=== PATIENT | male | born 1970 | race Caucasian/White ===

== ENCOUNTER 2022-01-22 09:21 | Emergency (ER) | payer OTHER ==
[2022-01-22 10:44] VITALS: BP 115/83
[2022-01-22 11:04] VITALS: PULSE 77; O2SAT 98
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
== END 2022-01-22 11:32 | disposition left against medical advice (07) ==
LOC: ED 09:21
DX: M54.50 Low back pain, unspecified (principal); V86.55XA Driver of 3- or 4- wheeled all-terrain vehicle (ATV) injured in nontraffic accident, initial encounter; Z72.0 Tobacco use; Z79.891 Long term (current) use of opiate analgesic
CPT/HCPCS: 99281

== ENCOUNTER 2022-03-16 23:34 | Emergency (ER) | payer OTHER ==
--- NOTE | 2022-03-16 23:48 | ERPHSYRPT ---
- History of Present Illness Time Seen by Provider: 03/16/22 23:48 Source: patient Exam Limitations: no limitations Physician History: This is a 51-year-old white male who has had a urinary tract infection in the past and presents with similar symptoms. That is, left flank pain. He has no history of ureteral lithiasis. He does have a history of low back pain but it is more centrally located along his spine. He has not had any back injury. The pain he is experiencing now is different than his typical back pain. He has not noticed any dysuria or hematuria. Patient does not want an IV or any needle sticks. He will except obtaining a urinalysis. Timing/Duration: week(s) (1) Activites at Onset: none Quality: aching Onset Location: left flank Pain Radiation: none Severity of Pain-Max: moderate Severity of Pain-Current: mild (To moderate) Modifying Factors: Improves With: nothing Associated Symptoms: lower back pain (Left flank) Sexual intercourse history: non-contributory Allergies/Adverse Reactions: shellfish derived Allergy (Mild, Verified 03/16/22 23:48) Home Medications: Buprenorphine HCl/Naloxone HCl [Suboxone 2 mg-0.5 mg Sl Film] 1 each SL DAILY 01/22/22 [History] Hx Influenza Vaccination/Date Given: No Hx Pneumococcal Vaccination/Date Given: No Travel Risk - International Travel Have you traveled outside of the country in past 3 weeks: No - Coronavirus Screening Are you exhibiting any of the following symptoms?: No Close contact with a COVID-19 positive Pt in past 14-21 Days: No - Vaccine Status Have you recieved a Covid-19 vaccination: Yes 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[employer] - Past Medical History Pertinent Past Medical History: Yes Other Medical History: CHRONIC BACK PAIN - Past Surgical History Past Surgical History: Yes - Social History Smoking Status: Current every day smoker Exposure to second hand smoke: Yes Drug Use: marijuana Patient Lives Alone: No - Review of Systems Constitutional: No Symptoms Eyes: No Symptoms Ears, Nose, & Throat: No Symptoms Respiratory: No Symptoms Cardiac: No Symptoms Abdominal/Gastrointestinal: No Symptoms Genitourinary Symptoms: Flank Pain (Left) Musculoskeletal: No Symptoms Skin: No Symptoms Neurological: No Symptoms Psychological: No Symptoms Endocrine: No Symptoms Hematologic/Lymphatic: No Symptoms Immunological/Allergic: No Symptoms All Other Systems: Reviewed and Negative - Nursing Vital Signs Nursing Vital Signs: Initial Vital Signs Temperature 98.6 F 03/16/22 23:48 Pulse Rate 65 03/16/22 23:48 Respiratory Rate 18 03/16/22 23:48 Blood Pressure 104/61 03/16/22 23:48 O2 Sat by Pulse Oximetry 94 L 03/16/22 23:48 Pain Scale Pain Intensity 5 - Physical Exam General Appearance: no apparent distress, alert Eye Exam: PERRL/EOMI, eyes nml inspection Ears, Nose, Throat Exam: normal ENT inspection, moist mucous membranes Neck Exam: normal inspection, non-tender, supple, full range of motion Respiratory Exam: airway intact, No chest tenderness, No respiratory distress Gastrointestinal/Abdomen Exam: No tenderness Rectal Exam: not done Back Exam: normal inspection, normal range of motion, CVA tenderness (Left), No vertebral tenderness Extremity Exam: normal inspection, normal range of motion, pelvis stable Neurologic Exam: alert, oriented x 3, cooperative, nocturnist II-XII nml as tested, normal mood/affect, nml cerebellar function, nml station & gait, sensation nml Skin Exam: normal color, warm, dry Lymphatic Exam: No adenopathy SpO2 Interpretation: normal O2 Delivery: Room Air - Course Nursing assessment & vital signs reviewed: Yes Ordered Tests: Active Orders 24 hr Category Date Time Status UA W/RFX CULTURE Stat Lab 03/16/22 23:51 Results Lab/Rad Data: Laboratory Results 03/16/22 Range/Units 23:51 Urinalys Dipstick Clnc MAIN LAB Urine Color ORANGE A (YELLOW) Urine Appearance CLEAR (CLEAR) Urine pH 5.0 (5-6) Ur Specific [place] 1.010 (1.005-1.025) POC Urine Protein Conf 100 A (Negative) Urine Ketones SMALL-15 A (NEGATIVE) Urine Nitrite POSITIVE A (NEGATIVE) Urine Bilirubin SMALL A (NEGATIVE) Urine Urobilinogen 4 A (0-1) mg/dL Urine Leukocytes LARGE A (NEGATIVE) Urine WBC (Auto) Pending Urine RBC (Auto) Pending U Epithel Cells (Auto) Pending Urine Bacteria (Auto) Pending Urine RBC NEGATIVE (0-5) Tyler/ul Ur Culture Indicated? Pending Urine Glucose 250 A (NEGATIVE) mg/dL - Departure Departure Disposition: Home Clinical Impression: UTI (urinary tract infection) Condition: Stable Critical Care Time: No Referrals: DOCTOR,NO FAMILY [Primary Care Provider] - Follow up/PCP as directed Additional Instructions: Drink plenty of liquids. Take your antibiotics as prescribed. Follow-up with your primary care physician for persistent symptoms Prescriptions: Ciprofloxacin [Cipro 500 MG] 500 mg PO BID #14 tablet Phenazopyridine HCl 200 mg [Pyridium 200 mg] 200 mg PO TID #6 tablet
[2022-03-17 00:02] VITALS: BP 104/61
[2022-03-17 00:29] LABS: Appearance CLEAR (CLEAR); Bilirubin SMALL (NEGATIVE); Dipstick done @ ? MAIN LAB; Glucose 250 mg/dL (NEGATIVE); Ketones SMALL-15 (NEGATIVE); Nitrite POSITIVE (NEGATIVE); Protein,Urine Dip 100 (Negative); RBC NEGATIVE Ery/ul (0-5); Urobilinogen 4 mg/dL (0-1)
[2022-03-17] MEDS ORDERED: Levofloxacin 500 MG Tablet PO ONE (00:31)
[2022-03-17 00:39] LABS: Mucus SLIGHT /HPF (NEGATIVE); RBC 0-2 /HPF (0-2); WBC 0-2 /HPF (0-5)
[2022-03-17] MEDS ORDERED: Levofloxacin 500 MG Tablet ONE (00:39)
[2022-03-17 00:40] LABS: Bacteria NONE SEEN /HPF (NEGATIVE)
[2022-03-17 00:41] LABS: Urine Cultured Indicated? YES
[2022-03-17 00:44] VITALS: PULSE 72; O2SAT 100
== END 2022-03-17 00:45 | disposition home or self-care (01) ==
LOC: ED 23:34
DX: N39.0 Urinary tract infection, site not specified (principal); R10.9 Unspecified abdominal pain; Z79.891 Long term (current) use of opiate analgesic; Z72.0 Tobacco use
CPT/HCPCS: 81015; 87086; 99282; A9270-GY

== ENCOUNTER 2022-09-23 16:40 | Emergency (ER) | payer OTHER ==
[2022-09-23 16:52] VITALS: BP 111/77; PULSE 106; O2SAT 98
--- NOTE | 2022-09-23 17:03 | ERPHSYRPT ---
- History of Present Illness Time Seen by Provider: 09/23/22 17:02 Source: patient Exam Limitations: no limitations Patient Subjective Stated Complaint: Ziggy elbow pain Triage Nursing Assessment: Patient ambulated back to ED and transferred self to bed. Patient A+O X 3. Patient's skin pink, warm and dry. Patient compalins of ziggy elbow pain 7/10 for the past two weeks that has gotten worse. Patient's left elbow noted to be red, warm and swollen. Patient denies recent injury or trauma. Physician History: 52-year-old male presents emergency room with bilateral elbow pain for the past 2 weeks. 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 He denies having issues like this similar in the past. He denies any numbness or tingling down the hand different from his baseline. He is seeing an orthopedic surgeon for carpal tunnel that is to be released in the future. Occurred: other (worsening over past 2 weeks) Method of Injury: other (repetitive movements at work) Quality: constant, stabbing, throbbing Severity of Pain-Max: severe Severity of Pain-Current: severe Extremities Pain Location: elbow: bilateral (outside) Modifying Factors: Improves With: rest. Worsens With: movement Associated Symptoms: none Allergies/Adverse Reactions: shellfish derived Allergy (Mild, Verified 09/23/22 16:46) Home Medications: No Reportable Medications [No Reported Medications] 09/23/22 [History] Hx Tetanus, Diphtheria Vaccination/Date Given: No Hx Influenza Vaccination/Date Given: No Hx Pneumococcal Vaccination/Date Given: No Immunizations Up to Date: Yes Travel Risk - International Travel Have you traveled outside of the country in past 3 weeks: No - Coronavirus Screening Are you exhibiting any of the following symptoms?: No Close contact with a COVID-19 positive Pt in past 14-21 Days: No - Vaccine Status Have you recieved a Covid-19 vaccination: Yes 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: [employer] - Review of Systems Constitutional: No Symptoms Eyes: No Symptoms Ears, Nose, & Throat: No Symptoms Respiratory: No Symptoms Cardiac: No Symptoms Abdominal/Gastrointestinal: No Symptoms Genitourinary Symptoms: No Symptoms Musculoskeletal: Joint Pain (b/l elbow), No Fall, No Injury, No Joint Redness, No Joint Swelling Skin: No Symptoms Neurological: No Symptoms Psychological: No Symptoms Endocrine: No Symptoms Hematologic/Lymphatic: No Symptoms Immunological/Allergic: No Symptoms All Other Systems: Reviewed and Negative - Past Medical History Pertinent Past Medical History: Yes GI Medical History: Ulcer Other Medical History: CHRONIC BACK PAIN - Past Surgical History Past Surgical History: Yes - Social History Smoking Status: Current every day smoker How long have you smoked: years Exposure to second hand smoke: Yes Drug Use: marijuana Patient Lives Alone: No - Nursing Vital Signs Nursing Vital Signs: Initial Vital Signs Temperature 98.4 F 09/23/22 16:47 Pulse Rate 106 H 09/23/22 16:47 Respiratory Rate 18 09/23/22 16:47 Blood Pressure 111/77 09/23/22 16:47 O2 Sat by Pulse Oximetry 98 09/23/22 16:47 Pain Scale Pain Intensity 7 - Physical Exam General Appearance: no apparent distress Cardiovascular/Respiratory Exam: normal peripheral pulses Shoulder Exam: normal inspection, non-tender, no evidence of injury, normal ROM Elbow/Forearm Exam: normal inspection, non-tender, no evidence of injury, normal ROM, pain (w/ resisted extension and pronation), soft tissue tenderness (b/l lateral epicondyle), No deformity, No ecchymosis, No swelling Wrist Exam: normal inspection, non-tender, no evidence of injury, normal ROM Hand Exam: normal inspection, non-tender, no evidence of injury, normal ROM Neuro/Tendon Exam: normal sensation, normal motor functions, normal tendon functions Mental Status Exam: alert, oriented x 3, cooperative Skin Exam: normal color, warm, dry, No rash SpO2 Interpretation: normal SpO2: 98 O2 Delivery: Room Air - Course Nursing assessment & vital signs reviewed: Yes Ordered Tests: Medication Summary Discontinued Medications Generic Name Dose Route Start Last Admin Trade Name Oswaldo PRN Reason Stop Dose Admin Ketorolac Tromethamine 60 mg 09/23/22 17:15 09/23/22 17:28 Ketorolac Tromethamine 30 Mg/Ml Inj IM 09/23/22 17:16 60 mg STAT ONE Administration Ketorolac Tromethamine Confirm 09/23/22 17:23 Ketorolac Tromethamine 30 Mg/Ml Inj Administered 09/23/22 17:24 Dose 60 mg .ROUTE .STK-MED ONE - Progress Progress: improved Progress Note: Based on physical exam and history patient has bilateral lateral epicondylitis. I gave him IM Toradol which gave him good relief. I also gave the patient a list of exercises to begin performing to help alleviate the issue. Since the patient is already seeing an orthopedic surgeon in [place] I recommended that he follow-up with him for this issue as well. I encouraged the patient to take Tylenol and NSAIDs as needed for pain, but the most important thing to help this condition are the exercises. Counseled pt/family regarding: diagnosis, need for follow-up Medical Desision Making - Risk of complications The pt has a mod risk of morbidity or mortality based on: Need for prescription drug management - Departure Departure Disposition: Home Clinical Impression: Lateral epicondylitis of both elbows Condition: Good Critical Care Time: No Referrals: DOCTOR,NO FAMILY [Primary Care Provider] - Follow up/PCP as directed DANTE KUO MD [NON-STAFF PHY W/O PRIVILEGES] - Follow Up with PCP/3 days Instructions: Lateral Epicondylitis Forms: Work/School Release Form
[2022-09-23] MEDS ORDERED: TORAdol 30 mg Injection IM ONE (17:15)
[2022-09-23] MEDS ORDERED: TORAdol 30 mg Injection ONE (17:23)
== END 2022-09-23 17:36 | disposition home or self-care (01) ==
LOC: ED 16:40
DX: M77.12 Lateral epicondylitis, left elbow (principal); M77.11 Lateral epicondylitis, right elbow; Z72.0 Tobacco use
CPT/HCPCS: 96372; 99282; J1885